=== PATIENT | female | born 1955 | race Hispanic/Latino ===

== ENCOUNTER 2018-05-19 01:21 | Emergency (ER) | payer MEDICAID, SELFPAY ==
[2018-05-19] MEDS ORDERED: Furosemide 20 MG/2 ML VIAL ONE (02:24)
[2018-05-19 02:28] LABS: #Basophils 0.1 thou/uL (0.0-0.2); #Eosinphils 0.2 thou/uL (0.0-0.7); #Lymphocytes 2.7 thou/uL (1.20-3.40); #Monocytes 0.2 thou/uL (0.11-0.59); #Neutrophils 4.2 thou/uL (1.40-6.50); %Eosinophils 2.4 % (0.0-10.0); %Lymphocytes 36.7 % (21.0-51.0); %Monocytes 2.5 % (0.0-10.0); %Neutrophils 57.4 % (42.0-75.0); Hemoglobin 7.3 g/dL (12.0-16.0); Mean Corpuscular HGB CONC 32.1 g/dL (32.0-36.0); Mean Corpuscular Volume 81.1 fL (78.0-98.0); Mean Platelet Volume 6.2 fL (7.4-10.4); Platelet Count 426 thou/uL (130-400); RBC Distribution Width 12.9 % (11.5-14.5); Red Blood Cell (RBC) Count 2.81 mill/uL (4.20-5.40); White Blood Cell (WBC) Count 7.3 thou/uL (4.8-10.8)
[2018-05-19 02:52] LABS: ALT (SGPT) 7 U/L (8-55); AST (SGOT) 16 U/L (5-34); Albumin 3.1 g/dL (3.5-5.0); Alkaline Phosphatase 106 U/L (40-150); Anion Gap 13 mmol/L (10-20); BUN (Urea Nitrogen) 24 mg/dL (9.8-20.1); Bilirubin, Total 0.2 mg/dL (0.2-1.2); Calc. Creatinine Clearance 0 mL/min (70-130); Calcium 10.4 mg/dL (7.8-10.44); Carbon Dioxide 19 mmol/L (22-29); Chloride 111 mmol/L (98-107); Estimated GFR-MDRD 29; Globulin 3.8 g/dL (2.4-3.5); Glucose 143 mg/dL (70-105); Magnesium 1.9 mg/dL (1.6-2.6); Phosphorus 3.5 mg/dL (2.3-4.7); Potassium 4.4 mmol/L (3.5-5.1); Protein, Total 6.9 g/dL (6.0-8.3); Sodium 139 mmol/L (136-145)
[2018-05-19 03:02] LABS: Bilirubin Negative (Negative); Blood, Urine Trace (Negative); Clarity Clear (Clear); Glucose, Urine (Dipstick) 100 mg/dL (Negative); Leukocyte Small (Negative); Nitrite Negative (Negative); Protein, Urine (Dipstick) > or equal to 300 mg/dL (Neg-Trace); Urobilinogen 0.2 mg/dL (0.2-1.0)
[2018-05-19 03:09] LABS: Squamous Epithelial 0-3 HPF (0-3)
[2018-05-19 03:10] LABS: Bacteria/HPF None Seen HPF (None Seen); Hyaline Casts/LPF NONE SEEN LPF (0-3 Hyaline)
--- NOTE | 2018-05-19 08:24 | ULT ---
PRELIMINARY REPORT/[facility]/EMERGENCY AFTER HOURS PROCEDURE: EXAM: US Duplex Right Lower Extremity Veins EXAM DATE/TIME: Exam ordered 05/19/2018 3:42 AM CLINICAL HISTORY: 62 years old, female; Pain; Other: Pain, redness, swelling, rle TECHNIQUE: Real-time duplex ultrasound scan of the right lower extremity veins integrating B-mode twodimensional vascular structure, Doppler spectral analysis, color flow Doppler imaging and compression. COMPARISON: No relevant prior studies available. FINDINGS: Deep veins: Unremarkable. No DVT in the visualized common femoral, femoral, proximal deep femoral or popliteal veins. The veins demonstrate normal color flow, are normally compressible, with normal phas ic flow and/or augmentation response. Superficial veins: Unremarkable. No thrombus in the visualized great saphenous vein. Soft tissues: No acute findings. No popliteal cyst. Lymph nodes: Enlarged 1.7 cm short axis right inguinal lymph node. IMPRESSION: 1. No DVT. 2. Enlarged 1.7 cm short axis right inguinal lymph node. Thank you for allowing us to participate in the care of your patient. Dictated and Authenticated by: Kevin Amin MD 05/19/2018 6:03 AM Central Time ([place] & [place]) FINAL REPORT RIGHT LOWER EXTREMITY VENOUS DUPLEX STUDY: Date: 05/19/18 FINDINGS/IMPRESSION: No evidence of deep venous thrombosis identified in the right lower extremity on this exam. I am in agreement with the preliminary report issued by Fernando. POS: JOSE RAMON
--- NOTE | 2018-05-19 09:41 | RAD ---
RIGHT FOOT 3 VIEWS: Date: 05/19/18 INDICATION: Right foot pain. COMPARISON: Right foot films of 02/19/14. FINDINGS: There are degenerative changes with mild hallux deformity to first MTP joint, similar to the prior st udy. There are mild degenerative changes at the tarsometatarsal joints. There is a small plantar enth esophyte from the calcaneus. No fracture. No acute abnormality. The degenerative findings do not appe ar significantly changed from the exam of 2014. IMPRESSION: Stable appearing degenerative changes in the right foot as described. POS: JOSE RAMON
--- NOTE | 2018-05-19 09:48 | RAD ---
RIGHT ANKLE 3 VIEWS: Date: 05/19/18 HISTORY: Ankle pain. FINDINGS: Soft tissue swelling is present at the ankle. There is no fracture or acute osseous abnormality. Smal l enthesophyte from the plantar calcaneus. IMPRESSION: No acute osseous abnormality. POS: JOSE RAMON
== END 2018-05-19 05:04 | disposition home or self-care (01) ==
LOC: SCSER 01:21
DX: N28.9 Disorder of kidney and ureter, unspecified (principal); E11.9 Type 2 diabetes mellitus without complications; E78.5 Hyperlipidemia, unspecified; I11.0 Hypertensive heart disease with heart failure; I50.9 Heart failure, unspecified; F41.9 Anxiety disorder, unspecified; F17.210 Nicotine dependence, cigarettes, uncomplicated; Z79.899 Other long term (current) drug therapy
CPT/HCPCS: 80053; 81003; 81015; 82010; 83735; 84100; 85025; 85379; 87040; 96374; J1940

== ENCOUNTER 2018-10-06 19:16 | Emergency (ER) | payer SELFPAY ==
[2018-10-06 19:56] LABS: Bilirubin Negative (Negative); Blood, Urine Trace (Negative); Clarity Clear (Clear); Glucose, Urine (Dipstick) 100 mg/dL (Negative); Leukocyte Trace (Negative); Nitrite Negative (Negative); Protein, Urine (Dipstick) > or equal to 300 mg/dL (Neg-Trace); Specific Gravity, Urine 1.025 (1.005-1.030); Urobilinogen 0.2 mg/dL (0.2-1.0)
[2018-10-06 20:00] LABS: Hemoglobin 9.7 g/dL (12.0-16.0); Mean Corpuscular HGB CONC 31.7 g/dL (32.0-36.0); Mean Corpuscular Hemoglobin 23.9 pg (27.0-31.0); Mean Corpuscular Volume 75.5 fL (78.0-98.0); Mean Platelet Volume 7.1 fL (7.4-10.4); Platelet Count 312 thou/uL (130-400); RBC Distribution Width 13.9 % (11.5-14.5); Red Blood Cell (RBC) Count 4.06 mill/uL (4.20-5.40); White Blood Cell (WBC) Count 6.5 thou/uL (4.8-10.8)
[2018-10-06 20:03] LABS: RBC/HPF 0-3 HPF (0-3); Squamous Epithelial 0-3 HPF (0-3); WBC/HPF 0-3 HPF (0-3)
[2018-10-06 20:04] LABS: Bacteria/HPF None Seen HPF (None Seen); Hyaline Casts/LPF 0-3 HYALINE CAST LPF (0-3 Hyaline)
[2018-10-06 20:05] LABS: #Eosinphils 0.2 thou/uL (0.0-0.7); #Lymphocytes 2.1 thou/uL (1.20-3.40); #Monocytes 0.5 thou/uL (0.11-0.59); #Neutrophils 3.7 thou/uL (1.40-6.50); %Basophils 0.7 % (0.0-1.0); %Eosinophils 2.8 % (0.0-10.0); %Lymphocytes 31.4 % (21.0-51.0); %Monocytes 7.7 % (0.0-10.0); %Neutrophils 57.3 % (42.0-75.0); Anisocytosis SLIGHT = 6-15 cells (100X) (0-5/hpf); Hypochromia SLIGHT = 6-15 cells (100X) (0-5/hpf); MDiff Complete? YES
[2018-10-06 20:16] LABS: ALT (SGPT) 9 U/L (8-55); AST (SGOT) 15 U/L (5-34); Albumin 3.5 g/dL (3.4-4.8); Alkaline Phosphatase 103 U/L (40-150); Anion Gap 12 mmol/L (10-20); BUN (Urea Nitrogen) 32 mg/dL (9.8-20.1); Bilirubin, Total 0.2 mg/dL (0.2-1.2); CK (CPK) 75 U/L (29-168); Calc. Creatinine Clearance 0 mL/min (70-130); Calcium 8.6 mg/dL (7.8-10.44); Carbon Dioxide 20 mmol/L (23-31); Chloride 113 mmol/L (98-107); Estimated GFR-MDRD 35; Globulin 3.3 g/dL (2.4-3.5); Glucose 215 mg/dL (80-115); Lipase 84 U/L (8-78); Potassium 4.2 mmol/L (3.5-5.1); Protein, Total 6.8 g/dL (6.0-8.3); Sodium 141 mmol/L (136-145)
[2018-10-06 20:17] LABS: CKMB 1.5 ng/mL (0-6.6); Troponin I Less than 0.010 ng/mL (< 0.028)
--- NOTE | 2018-10-06 20:43 | CT ---
CT ABDOMEN AND PELVIS WITHOUT CONTRAST: 10/06/2018 HISTORY: Lower abdominal pain. COMPARISON: 03/06/2017 TECHNIQUE: Serial axial CT imaging at 5 mm intervals from the lung bases through the pubic symphysis without con trast. Coronal reformatted imaging obtained. FINDINGS: Lack of contrast limits assessment of viscera, bowel, and vascular structures, and for lymphadenopath y. The heart appears enlarged, stable. Limited assessment of the lung bases demonstrates no acute f indings. No free intraperitoneal air. Probable small stones noted within the gallbladder. The liver, spleen, pancreas, and adrenal glands appear grossly unremarkable. The kidneys appear grossly unremarkable as well. The appendix is normal. Limited assessment of the bowel demonstrates no evidence for inflammatory change or obstruction. There is a small fat-containi ng umbilical hernia. There is a questionable low density lesion seen within the right ovary, measuring 1.5 cm. Nonemergent follow-up pelvic ultrasound thus advised. Review of the osseous structures demonstrates lower lumbar spine degenerative change with disk space narrowing and vacuum disk at L4-L5 and lateral right-sided osteophyte formation at L3-L4 and at L4-L5 . IMPRESSION: 1. No evidence for nephrolithiasis or obstructive uropathy. 2. No evidence for free intraperitoneal air or small bowel obstruction. 3. Small fat-containing umbilical hernia. 4. Question small stones within the gallbladder. 5. Probable low density lesion within the right ovary. Nonemergent follow-up pelvic ultrasound thus advised. POS: JOSE RAMON
== END 2018-10-06 20:43 | disposition home or self-care (01) ==
LOC: SCSER 19:16
DX: R10.31 Right lower quadrant pain (principal); R10.32 Left lower quadrant pain; E11.9 Type 2 diabetes mellitus without complications; I11.0 Hypertensive heart disease with heart failure; I50.9 Heart failure, unspecified; F17.210 Nicotine dependence, cigarettes, uncomplicated
CPT/HCPCS: 74176; 80053; 81003; 81015; 82553; 83690; 84484; 85025; 93005